=== PATIENT | female | born 1980 | race Caucasian/White ===

== ENCOUNTER 2018-11-22 14:55 | Emergency (ER) | payer SELFPAY ==
[2018-11-22] MEDS ORDERED: Albuterol Sulfate 2.5 mg/3 ml Neb ONE (15:14)
--- NOTE | 2018-11-22 15:51 | RAD ---
XR Chest Pa Lat STANDARD History: [Cough] Comparison: Radiograph October 15, 2018 Findings: Lungs are clear. No pneumothorax or effusion. Cardiac silhouette and mediastinal contours a re within normal limits. No acute osseous abnormality. Impression: No acute intrathoracic abnormality.
[2018-11-22] MEDS ORDERED: Dexamethasone 4 mg/ml Vial ONE (16:26)
== END 2018-11-22 17:54 | disposition home or self-care (01) ==
LOC: ERS 14:55
DX: J45.901 Unspecified asthma with (acute) exacerbation (principal); F17.210 Nicotine dependence, cigarettes, uncomplicated
CPT/HCPCS: 71046; 94640; J1100; J7611; J7620

== ENCOUNTER 2022-06-12 10:04 | Emergency (ER) | payer OTHER ==
[2022-06-12] MEDS ORDERED: predniSONE 20 MG TAB ONE (11:57)
[2022-06-12] MEDS ORDERED: Albuterol Sulfate 1.25 MG/3 ML NEB ONE (11:57)
== END 2022-06-12 13:15 | disposition home or self-care (01) ==
LOC: ERS 10:04
DX: J45.901 Unspecified asthma with (acute) exacerbation (principal)
CPT/HCPCS: 71045; 94760; J7512; J7620

== ENCOUNTER 2022-11-04 15:19 | Emergency (ER) | payer OTHER ==
[2022-11-04] MEDS ORDERED: predniSONE 20 MG TAB ONE (16:48)
[2022-11-04] MEDS ORDERED: Ipratropium/Albuterol 3 ML NEB ONE (17:15)
== END 2022-11-04 17:59 | disposition home or self-care (01) ==
LOC: ERS 15:19
DX: J45.909 Unspecified asthma, uncomplicated (principal); Z79.899 Other long term (current) drug therapy
CPT/HCPCS: 94640; J7512; J7620

== ENCOUNTER 2022-12-29 15:49 | Emergency (ER) | payer OTHER, SELFPAY ==
[2022-12-29] MEDS ORDERED: predniSONE 20 MG TAB ONE ×2 (16:40→16:48)
[2022-12-29] MEDS ORDERED: Ipratropium/Albuterol 3 ML NEB ONE (17:17)
== END 2022-12-29 18:11 | disposition home or self-care (01) ==
LOC: ERS 15:49
DX: J45.901 Unspecified asthma with (acute) exacerbation (principal)
CPT/HCPCS: 71045; J7512; J7620

== ENCOUNTER 2024-06-06 06:57 | Inpatient (IN) | payer OTHER ==
[2024-06-06] MEDS ORDERED: methylPREDNISolone Sod Succ/PF 125 MG/2 ML VIAL ONE (07:23)
[2024-06-06] MEDS ORDERED: methylPREDNISolone Sod Succ 40 MG VIAL ONE (07:25)
[2024-06-06 07:30] LABS: #Basophils 0.03 10x3/uL (0.0-0.2); %Basophils 0.3 % (0.0-1.0); %Eosinophils 3.7 % (0.0-10.0); %Lymphocytes 4.6 % (21.0-51.0); %Monocytes 7.2 % (0.0-10.0); %Neutrophils 83.8 % (42.0-75.0); Hematocrit 40.4 % (36.0-47.0); Hemoglobin 13.5 g/dL (12.0-16.0); Mean Corpuscular HGB CONC 33.4 g/dL (32.0-36.0); Mean Corpuscular Hemoglobin 28.6 pg (27.0-31.0); Mean Corpuscular Volume 85.6 fL (78.0-98.0); Platelet Count 310 10x3/uL (130-400); RBC Distribution Width 12.8 % (11.5-14.5); Red Blood Cell (RBC) Count 4.72 mill/uL (4.20-5.40)
[2024-06-06] MEDS ORDERED: Ipratropium/Albuterol 3 ML NEB ONE ×3 (07:35→11:49)
[2024-06-06 07:39] LABS: BHCG - Serum Negative (NEGATIVE); Pregs Control Background? CLEAR/WHITE (CLR/WHITE); Pregs Control Bar Appear? YES (CONTROL BAR)
[2024-06-06 07:51] LABS: ALT (SGPT) 22 U/L (8-55); AST (SGOT) 23 U/L (5-34); Albumin 3.5 g/dL (3.5-5.0); Alkaline Phosphatase 57 U/L (40-110); Anion Gap 17 mmol/L (10-20); BUN (Urea Nitrogen) 7 mg/dL (7.0-18.7); Bilirubin, Total 0.5 mg/dL (0.2-1.2); Calc. Creatinine Clearance 0 mL/min (70-130); Calcium 9.2 mg/dL (7.8-10.44); Carbon Dioxide 22 mmol/L (22-29); Chloride 98 mmol/L (98-107); Estimated GFR 95; Globulin 4.4 g/dL (2.4-3.5); Glucose 293 mg/dL (70-105); Potassium 3.9 mmol/L (3.5-5.1); Protein, Total 7.9 g/dL (6.0-8.3); Sodium 133 mmol/L (136-145)
[2024-06-06] MEDS ORDERED: hydrALAZINE 20 MG/ML VIAL ONE (07:51)
[2024-06-06] MEDS ORDERED: Magnesium 2 GM/50 ML BAG (IN WATER) ONE (09:50)
[2024-06-06] MEDS ORDERED: Albuterol 2.5 MG (3 mL) NEB NEB PRN (11:56)
[2024-06-06] MEDS ORDERED: Ondansetron ODT 4 MG TAB SL PRN (12:00)
[2024-06-06] MEDS ORDERED: Ondansetron PF 4 MG/2 ML Vial IVP PRN (12:00)
[2024-06-06] MEDS ORDERED: Dextrose 5% in Water 1,000 ML IV PRN (12:29)
[2024-06-06] MEDS ORDERED: Glucagon 1 MG/ML KIT IM PRN (12:29)
[2024-06-06] MEDS ORDERED: Dextrose 50% Abboject 50 ML SYRINGE SLOW IVP PRN (12:29)
[2024-06-06] MEDS ORDERED: Albuterol 200 PUFF INH INH PRN (13:18)
[2024-06-06] MEDS: Ipratropium/Albuterol 3 ML NEB NEB SCH (13:33)
[2024-06-06] MEDS: methylPREDNISolone Sod Succ 40 MG VIAL IVP SCH ×2 (13:43→20:18)
[2024-06-06 13:45] VITALS: BMI 35.4
[2024-06-06] MEDS ORDERED: hydrOXYzine 25 MG TAB PO PRN (14:28)
[2024-06-06] MEDS ORDERED: Ipratropium/Albuterol 3 ML NEB NEB SCH (14:30)
[2024-06-06] MEDS ORDERED: Acetaminophen W/ Codeine 5 ML UDCUP PO PRN (15:19)
[2024-06-06] MEDS: Benzonatate 100 MG CAP PO PRN (16:08)
[2024-06-06] MEDS: metFORMIN 500 MG TAB PO SCH (16:08)
[2024-06-06] MEDS: Insulin Regular, Human 100 UNIT/ML 10 ML VIAL SC PRN ×2 (16:09→20:19)
[2024-06-06] MEDS: Montelukast Sodium 10 mg Tablet PO SCH (20:18)
[2024-06-06] MEDS: Acetaminophen 325 MG TAB PO PRN (20:18)
[2024-06-07 04:34] LABS: #Basophils Less than 0.03 10x3/uL (0.0-0.2); #Eosinophils Less than 0.03 10x3/uL (0.0-0.7); %Basophils 0.1 % (0.0-1.0); %Lymphocytes 6.4 % (21.0-51.0); %Monocytes 3.7 % (0.0-10.0); %Neutrophils 89.4 % (42.0-75.0); Hematocrit 41.7 % (36.0-47.0); Hemoglobin 13.4 g/dL (12.0-16.0); Mean Corpuscular HGB CONC 32.1 g/dL (32.0-36.0); Mean Corpuscular Hemoglobin 28.7 pg (27.0-31.0); Mean Corpuscular Volume 89.3 fL (78.0-98.0); Platelet Count 152 10x3/uL (130-400); RBC Distribution Width 13.1 % (11.5-14.5); Red Blood Cell (RBC) Count 4.67 mill/uL (4.20-5.40)
[2024-06-07 04:49] LABS: Anion Gap 21 mmol/L (10-20); BUN (Urea Nitrogen) 13 mg/dL (7.0-18.7); Calc. Creatinine Clearance 121 mL/min (70-130); Calcium 8.7 mg/dL (7.8-10.44); Carbon Dioxide 16 mmol/L (22-29); Chloride 102 mmol/L (98-107); Estimated GFR 92; Glucose 322 mg/dL (70-105); Potassium 4.8 mmol/L (3.5-5.1); Sodium 134 mmol/L (136-145)
[2024-06-07] MEDS: Atorvastatin Calcium 20 MG TAB PO SCH (08:37)
[2024-06-07] MEDS: glipiZIDE 10 MG TAB PO SCH (08:37)
[2024-06-07] MEDS ORDERED: FLU (Fluarix Triv) TS24-25(6MOS UP)/PF 45 MCG/0.5 ML Syringe IM ONE (09:00)
[2024-06-07] MEDS: guaiFENesin/Codeine 200 mg/20 mg 10 ml Cup PO PRN (16:39)
[2024-06-07 21:43] VITALS: BP 138/71; TEMP 98.1
[2024-06-20 09:30] LABS: Anion Gap 17 mmol/L (10-20); BUN (Urea Nitrogen) 20 mg/dL (7.0-18.7); Calc. Creatinine Clearance 120 mL/min (70-130); Carbon Dioxide 19 mmol/L (22-29); Chloride 102 mmol/L (98-107); Estimated GFR 91; Potassium 3.7 mmol/L (3.5-5.1); Sodium 134 mmol/L (136-145)
[2024-06-20 09:31] LABS: Calcium 8.1 mg/dL (7.6-10.4); Glucose 301 mg/dL (70-105); Red Blood Cell (RBC) Count 4.04 mill/uL (4.20-5.40)
[2024-06-20 09:32] LABS: %Lymphocytes 3.4 % (21.0-51.0); %Monocytes 3.2 % (0.0-10.0); %Neutrophils 92.8 % (42.0-75.0); Hematocrit 35.5 % (36.0-47.0); Hemoglobin 11.8 g/dL (12.0-16.0); Mean Corpuscular HGB CONC 33.2 g/dL (32.0-36.0); Mean Corpuscular Hemoglobin 29.2 pg (27.0-31.0); Mean Corpuscular Volume 87.9 fL (78.0-98.0); Mean Platelet Volume 9.8 fL (7.4-10.4); Platelet Count 312 10x3/uL (130-400); RBC Distribution Width 13.1 % (11.5-14.5)
[2024-06-20 09:33] LABS: #Basophils Less than 0.03 10x3/uL (0.0-0.2); #Eosinophils Less than 0.03 10x3/uL (0.0-0.7); %Basophils 0.1 % (0.0-1.0)
== END 2024-06-08 12:10 | disposition home or self-care (01) | DRG 202 ==
LOC: ERS 06:57 → OBS 13:15 → OBSVTOIN 06-07 14:05
PROVIDERS: ADMIT Internal Medicine; ATTEND Student in an Organized Health Care Education/Training Program
DX: J45.901 Unspecified asthma with (acute) exacerbation (principal); J96.01 Acute respiratory failure with hypoxia; E78.5 Hyperlipidemia, unspecified; E11.9 Type 2 diabetes mellitus without complications; F41.9 Anxiety disorder, unspecified; F90.9 Attention-deficit hyperactivity disorder, unspecified type; I10 Essential (primary) hypertension; Z98.51 Tubal ligation status; Z87.891 Personal history of nicotine dependence; Z79.899 Other long term (current) drug therapy; Z79.51 Long term (current) use of inhaled steroids
CPT/HCPCS: 36415; 36416; 71045; 80048; 80053; 84703; 85025; 87428; 93005; 94640; 96365; 96375; 96376; G0378; J0360; J1815; J2919; J3475; J7620